=== PATIENT | female | born 1960 | race Caucasian/White ===

== ENCOUNTER 2016-10-01 21:14 | Inpatient (IN) | payer MEDICAID ==
[2016-10-01 21:47] VITALS: BP 154/91
[2016-10-01] MEDS ORDERED: Albuterol Nebulizer 2.5mg/3mL IH PRN (22:31)
[2016-10-01] MEDS ORDERED: Maalox 30 mL Cup PO PRN (22:31)
[2016-10-02] MEDS ORDERED: Thiamine 100 mg/mL 2mL Vial ONE (01:21)
[2016-10-02] MEDS ORDERED: Magnesium Sulfate 1 gm/2 mL 2mL Vial IV ONE (01:22)
[2016-10-02] MEDS ORDERED: Multivitamin Inj 10 mL Vial IV ONE (01:23)
[2016-10-02 04:30] LABS: AMPHETAMINE URINE NEGATIVE (NEGATIVE); BARBITURATES URINE NEGATIVE (NEGATIVE)
[2016-10-02 06:23] LABS: % BASOPHILS 0.5 % (0.0-2.0); % EOSINOPHILS 3.2 % (0.0-5.0); % NEUTROPHILS 72.3 % (40.0-80.0); HEMATOCRIT 35.8 % (35.0-45.0); HEMOGLOBIN 12.6 gm/dL (11.7-15.5); MEAN CELL VOLUME 99.2 fl (81-100); MEAN CORPUSCULAR HEMOGLOBIN 34.8 pg (27.0-31.0); MEAN CORPUSCULAR HGB CONC 35.1 pg (28.0-36.0); MEAN PLATELET VOLUME 7.9 fl; NEUTROPHILE ABSOLUTE 5.4 Th/cmm (1.8-8.0); PLATELET COUNT 222 Th/cmm (150-400); RED BLOOD COUNT 3.61 Mil/cmm (3.80-5.10); RED CELL DISTRIBUTION WIDTH 11.7 % (11.5-20.0); WHITE BLOOD COUNT 7.3 Th/cmm (4.8-10.8)
[2016-10-02 06:47] LABS: ALB/GLOB RATIO 1.1 (1.0-1.8); ALKALINE PHOSPHATASE 85 U/L (34-104); ANION GAP 10.2 (7.0-16.0); BILIRUBIN,TOTAL 0.7 mg/dL (0.3-1.0); BUN - UREA NITROGEN 6 mg/dL (7-25); CALCIUM SERUM 9.5 mg/dL (8.6-10.3); CARBON DIOXIDE 26.1 mEq/L (21.0-31.0); CHLORIDE 99 mEq/L (98-107); CREATININE - SERUM 0.5 mg/dL (0.6-1.2); GLUCOSE 97 mg/dL (70-105); MAGNESIUM 1.6 mg/dL (1.9-2.7); POTASSIUM SERUM 3.3 mEq/L (3.5-5.1); SGOT 22 U/L (13-39); SGPT/ALT 9 U/L (7-52); SODIUM SERUM 132 mEq/L (136-145)
[2016-10-02 07:01] LABS: BNP 23.4 pg/mL (5.0-100.0)
[2016-10-02 08:03] LABS: TSH 2.13 uIU/ml (0.34-5.60)
[2016-10-02] MEDS: Multivitamin Inj 10 ML, Thiamine HCL 100 MG, Magnesium Sulfate 2 GM, Folic Acid 1 MG in... IV SCH (08:50)
[2016-10-02] MEDS: Pantoprazole 40 mg EC Tab PO SCH ×2 (08:50→16:20)
[2016-10-02] MEDS ORDERED: Pneumococcal Vaccine 0.5 mL Vial IM ONE (10:00)
[2016-10-02] MEDS ORDERED: Influenza Vaccine 0.5 mL Syr IM ONE (10:00)
--- NOTE | 2016-10-02 10:27 | Diagnostic Imaging Report ---
CHEST X-RAY: AP view INDICATION: Shortness of breath COMPARISON: None FINDINGS: Mild chronic changes are seen. No focal consolidation or pleural effusions. Heart size is normal. Degenerative changes of the spine are noted. IMPRESSION: Mild chronic lung changes. No focal consolidation identified. No radiographic evidence of CHF.
[2016-10-02] MEDS: Ipratropium Neb 0.5 mg/2.5 mL UD IH PRN ×4 (11:28→23:10)
--- NOTE | 2016-10-02 12:33 | Internal Medicine Prog Note ---
Internal Medicine Subjective - Subjective Service Date: 10/02/16 ([id number] DICTATED HNP) Internal Medicine Objective - Results Result Diagrams: 10/02/16 05:54 10/02/16 05:54 Recent Labs: Laboratory Last Values WBC 7.3 Th/cmm (4.8-10.8) 10/02/16 05:54 RBC 3.61 Mil/cmm (3.80-5.10) L 10/02/16 05:54 Hgb 12.6 gm/dL (11.7-15.5) 10/02/16 05:54 Hct 35.8 % (35.0-45.0) 10/02/16 05:54 MCV 99.2 fl (81-100) 10/02/16 05:54 MCH 34.8 pg (27.0-31.0) H 10/02/16 05:54 MCHC Differential 35.1 pg (28.0-36.0) 10/02/16 05:54 RDW 11.7 % (11.5-20.0) 10/02/16 05:54 Plt Count 222 Th/cmm (150-400) 10/02/16 05:54 MPV 7.9 fl 10/02/16 05:54 Neutrophils % 72.3 % (40.0-80.0) 10/02/16 05:54 Lymphocytes % 13.0 % (20.0-50.0) L 10/02/16 05:54 Monocytes % 11.0 % (2.0-10.0) H 10/02/16 05:54 Eosinophils % 3.2 % (0.0-5.0) 10/02/16 05:54 Basophils % 0.5 % (0.0-2.0) 10/02/16 05:54 Sodium 132 mEq/L (136-145) L 10/02/16 05:54 Potassium 3.3 mEq/L (3.5-5.1) L 10/02/16 05:54 Chloride 99 mEq/L (98-107) 10/02/16 05:54 Carbon Dioxide 26.1 mEq/L (21.0-31.0) 10/02/16 05:54 Anion Gap 10.2 (7.0-16.0) 10/02/16 05:54 BUN 6 mg/dL (7-25) L 10/02/16 05:54 Creatinine 0.5 mg/dL (0.6-1.2) L 10/02/16 05:54 Est GFR ( Amer) > 60.0 ml/min 10/02/16 05:54 Est GFR (Non-Af Amer) > 60.0 ml/min 10/02/16 05:54 BUN/Creatinine Ratio 12.0 10/02/16 05:54 Glucose 97 mg/dL (70-105) 10/02/16 05:54 Calcium 9.5 mg/dL (8.6-10.3) 10/02/16 05:54 Magnesium 1.6 mg/dL (1.9-2.7) L 10/02/16 05:54 Total Bilirubin 0.7 mg/dL (0.3-1.0) 10/02/16 05:54 AST 22 U/L (13-39) 10/02/16 05:54 ALT 9 U/L (7-52) 10/02/16 05:54 Alkaline Phosphatase 85 U/L (34-104) 10/02/16 05:54 Ammonia 62 umol/L (16-53) H 10/02/16 05:54 B-Natriuretic Peptide 23.4 pg/mL (5.0-100.0) 10/02/16 05:54 Total Protein 7.0 gm/dL (6.0-8.3) 10/02/16 05:54 Albumin 3.7 gm/dL (3.7-5.3) 10/02/16 05:54 Globulin 3.3 gm/dL 10/02/16 05:54 Albumin/Globulin Ratio 1.1 (1.0-1.8) 10/02/16 05:54 TSH 2.13 uIU/ml (0.34-5.60) 10/02/16 05:54 Urine Opiates Screen NEGATIVE (NEGATIVE) 10/02/16 02:35 Ur Barbiturates Screen NEGATIVE (NEGATIVE) 10/02/16 02:35 Ur Phencyclidine Scrn NEGATIVE (NEGATIVE) 10/02/16 02:35 Amphetamines Screen NEGATIVE (NEGATIVE) 10/02/16 02:35 U Methamphetamines Scrn POSITIVE (NEGATIVE) H 10/02/16 02:35 U Benzodiazepines Scrn POSITIVE (NEGATIVE) H 10/02/16 02:35 U Cocaine Metab Screen POSITIVE (NEGATIVE) H 10/02/16 02:35 U Cannabinoids Screen POSITIVE (NEGATIVE) H 10/02/16 02:35 Ethyl Alcohol < 10 mg/dL (0-10) 10/02/16 05:54 - Physical Exam Vitals and I&O: Vital Signs Temp 98.2 F 10/02/16 12:00 Pulse 95 10/02/16 12:00 Resp 19 10/02/16 12:00 BP 128/70 10/02/16 12:00 Pulse Ox 100 10/02/16 12:00 Intake & Output 10/01/16 10/02/16 10/02/16 18:59 06:59 18:59 Intake Total 150 Balance 150 Weight (lbs) 116 lb Intake: Oral 150 Other: # Voids 3 # Bowel Movements 0 Active Medications: Current Medications Acetaminophen (Tylenol) 650 mg PO Q4HR PRN PRN Reason: Pain or Fever >101 Stop: 11/30/16 22:30 Al Hydrox/Mg Hydrox/Simethicone (Maalox) 30 ml PO Q6HR PRN PRN Reason: Constipation Stop: 11/30/16 22:30 Albuterol Sulfate (Albuterol 2.5mg/3ml Neb Ud) 2.5 mg IH Q2HR PRN PRN Reason: Shortness of Breath or Wheeze Stop: 11/30/16 22:30 Last Admin: 10/02/16 11:28 Dose: 2.5 mg Chlordiazepoxide (Librium) 25 mg PO TID [facility] PRN Reason: Protocol Stop: 12/01/16 08:59 Last Admin: 10/02/16 08:51 Dose: 25 mg Clonidine HCl (Catapres) 0.1 mg PO Q6HR PRN PRN Reason: SBP GREATER THAN 160 Stop: 11/30/16 22:30 Folic Acid (Folate) 1 mg PO DAILY [facility] Stop: 12/01/16 08:59 Last Admin: 10/02/16 08:51 Dose: 1 mg Guaifenesin (Robitussin) 200 mg PO Q4HR PRN PRN Reason: Cough or Congestion Stop: 11/30/16 22:30 Multivitamins/Minerals 10 ml/Thiamine HCl 100 mg/ Magnesium Sulfate 2 gm/ Folic Acid 1 mg / Sodium Chloride 1,015.2 mls @ 100 mls/hr IV Q24H [facility] Stop: 11/30/16 22:29 Last Admin: 10/02/16 08:50 Dose: 100 mls/hr Ipratropium [place] (Atrovent Neb 0.5mg/2.5ml) 0.5 mg IH Q2HR PRN PRN Reason: Shortness of Breath or Wheeze Stop: 11/30/16 22:30 Last Admin: 10/02/16 11:28 Dose: 0.5 mg Lorazepam (Ativan) 1 mg IV Q4HR PRN; Protocol PRN Reason: Seizure Stop: 11/30/16 22:30 Meclizine HCl (Antivert) 25 mg PO DAILY PRN PRN Reason: Nausea / Vomiting Stop: 11/30/16 22:30 Ondansetron HCl (Zofran) 4 mg IV Q8H PRN PRN Reason: Nausea / Vomiting Stop: 11/30/16 22:30 Pantoprazole Sodium (Protonix) 40 mg PO BID [facility] Stop: 12/01/16 08:59 Last Admin: 10/02/16 08:50 Dose: 40 mg Thiamine HCl (Vitamin B1) 100 mg PO DAILY [facility] Stop: 12/01/16 08:59 Last Admin: 10/02/16 08:50 Dose: 100 mg Zolpidem Tartrate (Ambien) 10 mg PO HS PRN PRN Reason: Insomnia Stop: 11/30/16 22:30 Internal Medicine Assmt/Plan - Assessment Assessment: asthma exacerbation alcohol withdrawal dehydration hyponatremia hypokalemia polysubstance abuse
[2016-10-02] MEDS ORDERED: Potassium Chloride 20 mEq ER Tab PO ONE (13:50)
[2016-10-02] MEDS: Albuterol Nebulizer 2.5mg/3mL HHN SCH ×3 (14:12→23:10)
[2016-10-02] MEDS: Levofloxacin 500mg/100mL 500 MG/100 ML BAG IV SCH (14:14)
--- NOTE | 2016-10-02 17:24 | History & Physical ---
CHIEF COMPLAINT: Chest pain and congestion. HISTORY OF PRESENT ILLNESS: This is a 56-year-old female who is a direct admission from [facility]. According to the patient, she has been having a 2-month history of productive cough associated with off and on fever. The patient states that when she brought herself to [facility], the patient started to develop chest pain. She states that it was nonradiating, but it was more of chest pressure. Denies any shortness of breath. She does state that she has productive cough associated with dark green phlegm. The patient denied any chills, any night sweats or any recent travel outside of the . PAST MEDICAL HISTORY: Asthma and alcohol abuse. SOCIAL HISTORY: The patient states that she smokes cigarettes half a pack per day. She denied any illicit drug usage, but her toxicology is positive for methamphetamine, benzodiazepine, cocaine and cannabis. She states that she drinks alcohol occasionally. The patient is homeless. The patient states that she just lost her home 2 months ago as well. She lives in the streets. FAMILY HISTORY: Noncontributory. ALLERGIES: PENICILLIN. REVIEW OF SYSTEMS: GENERAL: Denies any fever, denies chills. CARDIOVASCULAR: Admits to chest pain. RESPIRATORY: Denies any shortness of breath, but complains of cough, denies any wheezes. GASTROINTESTINAL: Denies any nausea, vomiting or abdominal pain. GENITOURINARY: Denies any dysuria. All other systems are reviewed by me and are negative. LABORATORY DATA: WBC 7.3, H and H 12.6 and 35.8. Sodium 132, potassium 3.3. BUN is 6, creatinine 0.5. Ammonia 62. The patient had a chest x-ray done and the impression is mild chronic lung changes, no focal consolidation, no radiographic evidence of COPD. ASSESSMENT: 1. Alcohol withdrawal, dehydration. 2. Asthma exacerbation. 3. Hypokalemia. 4. Hyponatremia. 5. Polysubstance abuse. PLAN: The patient will be admitted to the telemetry unit. We will check the patient's troponin level. We will get roads superintendent on the case as well as psychiatrist. We will give albuterol and Atrovent. The patient will be kept on a banana bag and also on Librium. Put the patient on IV antibiotics of Levaquin. We will continue to monitor the patient. [facility]# [id number]
[2016-10-02] MEDS ORDERED: D5-0.45NS 1,000 ML IV SCH (18:00)
--- NOTE | 2016-10-03 00:17 | Admit Criteria Form ---
Admit Criteria Forms - Admit Criteria Diagnosis: ASTHMA Clinical Indications for Admission to Inpatient Care (Place 'X' for any and all applicable criteria): Admission is indicated for ANY ONE of the following (1)(2)(3)(4)(5): [ ]I. Absent or markedly diminished breath sounds (silent chest) [ ]II. Oxygen saturation < 92% [ ]III. PaCO2 = / > 42 mm Hg (5.6 kPa) [ ]IV. Peak expiratory flow rate < 40% of predicted or personal best after treatment. [ ]V. Peak expiratory flow rate < 33% of predicted or personal before after treatment [ ]. Change in mental status [ ]VII. Ventilatory support required [ ]VIII. PaO2 < 60 mm Hg (8.0 kPa) [ ]IX. Cyanosis [ ]X. Cardiac dysrhythmia (e.g., bradycardia) [ ]XI. Hemodynamic instability [ ]XII. Radiographic evidence of complication requiring inpatient treatment (e.g., pneumonia, pneumothorax) [ x]XIII. Inpatient admission required rather than observation care (also use Asthma: Observation Care guideline as appropriate) because of ANY ONE of the following: [ ]a) Respiratory finding that is severe or persistent (eg, dyspnea, tachypnea, accessory muscle use) [ ]b) Airflow measurements less than 60% of predicted or personal best that persist (e.g., over 24 hours) or worsen despite treatments [ ]c) Supplemental oxygen or respiratory treatments for over 24 hours that are performable only in acute inpatient setting [x ]d) Other condition, treatment or monitoring requiring inpatient admission. Extended stay beyond goal length of stay may be needed for (26)(27)(28): [ ]a) Severe respiratory failure (23) (29) (30) [ ]b) Secondary causes and complications (25) [ ]c) Status asthmaticus [ ]d) Chronic obstructive asthma [ ]e) Older patients (29) [ ]f) Slow resolution [ ]g) Clinically significant exacerbation of comorbidities (eg, he. heart failure, atrial fibrillation) The original [facility] content created by [facility] [employer] has been revised. The portions of the content which have been revised are identified through the use of italic text or in bold, and [facility] has neither reviewed nor approved the modified material. All other unmodified content is copyright [facility] Please see references footnoted in the original [facility] edition 2016 Admit Criteria Met?: Yes
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
[2016-10-03] MEDS: Albuterol Nebulizer 2.5mg/3mL HHN SCH ×6 (02:50→22:00)
[2016-10-03 06:05] LABS: HEMATOCRIT 36.3 % (35.0-45.0); HEMOGLOBIN 12.2 gm/dL (11.7-15.5); MEAN CELL VOLUME 99.8 fl (81-100); MEAN CORPUSCULAR HEMOGLOBIN 33.7 pg (27.0-31.0); MEAN CORPUSCULAR HGB CONC 33.7 pg (28.0-36.0); MEAN PLATELET VOLUME 7.9 fl; PLATELET COUNT 214 Th/cmm (150-400); RED BLOOD COUNT 3.63 Mil/cmm (3.80-5.10); RED CELL DISTRIBUTION WIDTH 11.6 % (11.5-20.0); WHITE BLOOD COUNT 6.6 Th/cmm (4.8-10.8)
[2016-10-03 06:31] LABS: ANION GAP 9.3 (7.0-16.0); BUN - UREA NITROGEN 4 mg/dL (7-25); CALCIUM SERUM 9.3 mg/dL (8.6-10.3); CARBON DIOXIDE 26.2 mEq/L (21.0-31.0); CHLORIDE 99 mEq/L (98-107); CREATININE - SERUM 0.5 mg/dL (0.6-1.2); GLUCOSE 102 mg/dL (70-105); MAGNESIUM 1.6 mg/dL (1.9-2.7); POTASSIUM SERUM 3.5 mEq/L (3.5-5.1); SODIUM SERUM 131 mEq/L (136-145)
[2016-10-03] MEDS: Ipratropium Neb 0.5 mg/2.5 mL UD IH PRN ×3 (06:51→14:02)
[2016-10-03] MEDS: Multivitamin Inj 10 ML, Thiamine HCL 100 MG, Magnesium Sulfate 2 GM, Folic Acid 1 MG in... IV SCH ×2 (08:07→23:45)
[2016-10-03] MEDS: Aspirin 81mg Chewable Tab PO SCH (08:07)
[2016-10-03] MEDS: Pantoprazole 40 mg EC Tab PO SCH ×2 (08:07→16:01)
[2016-10-03 08:25] LABS: BAND NEUTROPHILE 4 % (0-10); NEUTROPHILS 66 % (40-80); PLATELET ESTIMATE ADEQUATE (NORMAL); PLATELET MORPHOLOGY GIANT PLATELETS SEEN (NORMAL); TOTAL CELLS COUNTED 100
[2016-10-03] MEDS ORDERED: Multivitamin Inj 10 ML, Thiamine HCL 100 MG, Magnesium Sulfate 2 GM, Folic Acid 1 MG in... IV SCH (09:00)
[2016-10-03 13:13] LABS: FOLIC ACID 15.4 ng/mL (>3.0)
[2016-10-03] MEDS: Levofloxacin 500mg/100mL 500 MG/100 ML BAG IV SCH (13:19)
--- NOTE | 2016-10-03 14:31 | Internal Medicine Prog Note ---
Internal Medicine Subjective - Subjective Service Date: 10/03/16 Patient is:: awake Per staff patient is:: no adverse event Internal Medicine Objective - Results Result Diagrams: 10/03/16 05:39 10/03/16 05:39 Recent Labs: Laboratory Last Values WBC 6.6 Th/cmm (4.8-10.8) 10/03/16 05:39 RBC 3.63 Mil/cmm (3.80-5.10) L 10/03/16 05:39 Hgb 12.2 gm/dL (11.7-15.5) 10/03/16 05:39 Hct 36.3 % (35.0-45.0) 10/03/16 05:39 MCV 99.8 fl (81-100) 10/03/16 05:39 MCH 33.7 pg (27.0-31.0) H 10/03/16 05:39 MCHC Differential 33.7 pg (28.0-36.0) 10/03/16 05:39 RDW 11.6 % (11.5-20.0) 10/03/16 05:39 Plt Count 214 Th/cmm (150-400) 10/03/16 05:39 MPV 7.9 fl 10/03/16 05:39 Neutrophils % 72.3 % (40.0-80.0) 10/02/16 05:54 Band Neutrophils % 4 % (0-10) 10/03/16 05:39 Lymphocytes % 13.0 % (20.0-50.0) L 10/02/16 05:54 Monocytes % 11.0 % (2.0-10.0) H 10/02/16 05:54 Eosinophils % 3.2 % (0.0-5.0) 10/02/16 05:54 Basophils % 0.5 % (0.0-2.0) 10/02/16 05:54 Neutrophils (Manual) 66 % (40-80) 10/03/16 05:39 Lymphocytes 16 % (20-50) L 10/03/16 05:39 Monocytes 14 % (2-10) H 10/03/16 05:39 Eosinophils Not Reportable 10/03/16 05:39 Platelet Estimate ADEQUATE (NORMAL) 10/03/16 05:39 Platelet Morphology GIANT PLATELETS SEEN (NORMAL) 10/03/16 05:39 RBC Morph Micro Appear NORMAL (NORMAL) 10/03/16 05:39 Sodium 131 mEq/L (136-145) L 10/03/16 05:39 Potassium 3.5 mEq/L (3.5-5.1) 10/03/16 05:39 Chloride 99 mEq/L (98-107) 10/03/16 05:39 Carbon Dioxide 26.2 mEq/L (21.0-31.0) 10/03/16 05:39 Anion Gap 9.3 (7.0-16.0) 10/03/16 05:39 BUN 4 mg/dL (7-25) L 10/03/16 05:39 Creatinine 0.5 mg/dL (0.6-1.2) L 10/03/16 05:39 Est GFR ( Amer) > 60.0 ml/min 10/03/16 05:39 Est GFR (Non-Af Amer) > 60.0 ml/min 10/03/16 05:39 BUN/Creatinine Ratio 8.0 10/03/16 05:39 Glucose 102 mg/dL (70-105) 10/03/16 05:39 Calcium 9.3 mg/dL (8.6-10.3) 10/03/16 05:39 Magnesium 1.6 mg/dL (1.9-2.7) L 10/03/16 05:39 Total Bilirubin 0.7 mg/dL (0.3-1.0) 10/02/16 05:54 AST 22 U/L (13-39) 10/02/16 05:54 ALT 9 U/L (7-52) 10/02/16 05:54 Alkaline Phosphatase 85 U/L (34-104) 10/02/16 05:54 Ammonia 62 umol/L (16-53) H 10/02/16 05:54 Troponin I < 0.01 ng/mL (0.01-0.05) L 10/02/16 21:29 B-Natriuretic Peptide 23.4 pg/mL (5.0-100.0) 10/02/16 05:54 Total Protein 7.0 gm/dL (6.0-8.3) 10/02/16 05:54 Albumin 3.7 gm/dL (3.7-5.3) 10/02/16 05:54 Globulin 3.3 gm/dL 10/02/16 05:54 Albumin/Globulin Ratio 1.1 (1.0-1.8) 10/02/16 05:54 Vitamin B12 741 pg/mL (211-946) 10/02/16 05:54 Folic Acid 15.4 ng/mL (>3.0) 10/02/16 05:54 TSH 2.13 uIU/ml (0.34-5.60) 10/02/16 05:54 Urine Opiates Screen NEGATIVE (NEGATIVE) 10/02/16 02:35 Ur Barbiturates Screen NEGATIVE (NEGATIVE) 10/02/16 02:35 Ur Phencyclidine Scrn NEGATIVE (NEGATIVE) 10/02/16 02:35 Amphetamines Screen NEGATIVE (NEGATIVE) 10/02/16 02:35 U Methamphetamines Scrn POSITIVE (NEGATIVE) H 10/02/16 02:35 U Benzodiazepines Scrn POSITIVE (NEGATIVE) H 10/02/16 02:35 U Cocaine Metab Screen POSITIVE (NEGATIVE) H 10/02/16 02:35 U Cannabinoids Screen POSITIVE (NEGATIVE) H 10/02/16 02:35 Ethyl Alcohol < 10 mg/dL (0-10) 10/02/16 05:54 - Physical Exam Vitals and I&O: Vital Signs Temp 99.0 F 10/03/16 12:00 Pulse 108 10/03/16 14:03 Resp 20 10/03/16 14:03 BP 142/91 10/03/16 12:00 Pulse Ox 95 10/03/16 14:03 Intake & Output 10/02/16 10/03/16 10/03/16 18:59 06:59 18:59 Intake Total 550 1315.2 1000 Balance 550 1315.2 1000 Intake: Intake, IV Amount 100 1015.2 1000 D5-0.45NS 1,000 ml @ 70 1000 mls/hr IV .[id number] [facility] Rx #:[id number] Levofloxacin 500mg/100mL 100 500 mg In 100 ml @ 100 mls/hr IV Q24HR [facility] Rx#: [id number] Multivitamin Inj 10 ml 1015.2 Thiamine HCL 100 mg Magnesium Sulfate 2 gm Folic Acid 1 mg In Sodium Chloride 0.9% 1,000 ml @ 100 mls/hr IV Q24H [facility] Rx#:[id number] Oral 450 300 Other: # Voids 3 3 Active Medications: Current Medications Acetaminophen (Tylenol) 650 mg PO Q4HR PRN PRN Reason: Pain or Fever >101 Stop: 11/30/16 22:30 Al Hydrox/Mg Hydrox/Simethicone (Maalox) 30 ml PO Q6HR PRN PRN Reason: Constipation Stop: 11/30/16 22:30 Albuterol Sulfate (Albuterol 2.5mg/3ml Neb Ud) 2.5 mg HHN Q4HRT [facility] Stop: 12/01/16 14:59 Last Admin: 10/03/16 14:02 Dose: 2.5 mg Aspirin (Aspirin Chewable) 81 mg PO DAILY [facility] Stop: 12/02/16 08:59 Last Admin: 10/03/16 08:07 Dose: 81 mg Chlordiazepoxide (Librium) 25 mg PO TID [facility]EL PRN Reason: Protocol Stop: 12/01/16 08:59 Last Admin: 10/03/16 13:19 Dose: 25 mg Clonidine HCl (Catapres) 0.1 mg PO Q6HR PRN PRN Reason: SBP GREATER THAN 160 Stop: 12/01/16 12:35 Folic Acid (Folate) 1 mg PO DAILY [facility] Stop: 12/01/16 08:59 Last Admin: 10/03/16 08:07 Dose: 1 mg Guaifenesin (Robitussin) 200 mg PO Q4HR PRN PRN Reason: Cough or Congestion Stop: 11/30/16 22:30 Multivitamins/Minerals 10 ml/Thiamine HCl 100 mg/ Magnesium Sulfate 2 gm/ Folic Acid 1 mg / Sodium Chloride 1,015.2 mls @ 100 mls/hr IV Q24H [facility] Stop: 11/30/16 22:29 Last Admin: 10/03/16 08:07 Dose: 100 mls/hr Levofloxacin (Levaquin Pb) 500 mg in 100 mls @ 100 mls/hr IV Q24HR [facility] Stop: 12/01/16 12:59 Last Admin: 10/03/16 13:19 Dose: 100 mls/hr Dextrose/Sodium Chloride (D5-0.45ns) 1,000 mls @ 70 mls/hr IV .[id number] [facility] Stop: 12/01/16 17:59 Last Infusion: 10/03/16 10:03 Dose: Infused Ipratropium [place] (Atrovent Neb 0.5mg/2.5ml) 0.5 mg IH Q2HR PRN PRN Reason: Shortness of Breath or Wheeze Stop: 11/30/16 22:30 Last Admin: 10/03/16 14:02 Dose: 0.5 mg Lorazepam (Ativan) 1 mg IV Q4HR PRN; Protocol PRN Reason: Seizure Stop: 11/30/16 22:30 Last Admin: 10/03/16 01:59 Dose: 1 mg Lorazepam (Ativan) 1 mg PO Q6HR PRN; Protocol PRN Reason: Anxiety Stop: 12/01/16 19:14 Last Admin: 10/03/16 09:52 Dose: 1 mg Meclizine HCl (Antivert) 25 mg PO DAILY PRN PRN Reason: Nausea / Vomiting Stop: 11/30/16 22:30 Mirtazapine (Remeron) 15 mg PO HS [facility] PRN Reason: Protocol Stop: 12/01/16 20:59 Last Admin: 10/02/16 20:21 Dose: 15 mg Ondansetron HCl (Zofran) 4 mg IV Q8H PRN PRN Reason: Nausea / Vomiting Stop: 11/30/16 22:30 Pantoprazole Sodium (Protonix) 40 mg PO BID [facility] Stop: 12/01/16 08:59 Last Admin: 10/03/16 08:07 Dose: 40 mg Thiamine HCl (Vitamin B1) 100 mg PO DAILY [facility] Stop: 12/01/16 08:59 Last Admin: 10/03/16 08:07 Dose: 100 mg Zolpidem Tartrate (Ambien) 10 mg PO HS PRN PRN Reason: Insomnia Stop: 11/30/16 22:30 Last Admin: 10/02/16 20:22 Dose: 10 mg General: alert HEENT: NC/AT, PERRLA Neck: Supple Lungs: CTAB Cardiovascular: RRR, Normal S1, Normal S2, without murmur Abdomen: soft non-tender, non-distended, positive bowel sound Neurological: no change Internal Medicine Assmt/Plan - Assessment Assessment: asthma exacerbation alcohol withdrawal dehydration hyponatremia hypokalemia polysubstance abuse - Plan Plan: continue banana [facility] social work therapist to give information regarding shelters cbc/bmp in am fall precautions
[2016-10-03] MEDS: guaiFENesin 200 MG/10 ML UDC PO PRN (20:49)
[2016-10-03 22:10] LABS: URINE BILIRUBIN NEGATIVE (NEGATIVE); URINE BLOOD NEGATIVE (NEGATIVE); URINE COLOR YELLOW; URINE GLUCOSE (UA) NEGATIVE (NEGATIVE); URINE KETONE NEGATIVE (NEGATIVE); URINE PROTEIN NEGATIVE (NEGATIVE); URINE UROBILINOGEN 0.2 E.U./dL (0.2 - 1.0)
[2016-10-03 22:11] LABS: URINE BACTERIA FEW /hpf (NONE SEEN); URINE EPITHELIAL CELLS FEW /lpf (FEW); URINE RBC 0-2 /hpf (0-5); URINE WBC 0-2 /hpf (0-5)
[2016-10-04] MEDS: guaiFENesin 200 MG/10 ML UDC PO PRN ×3 (03:31→14:51)
[2016-10-04] MEDS: Albuterol Nebulizer 2.5mg/3mL HHN SCH ×3 (03:35→12:28)
[2016-10-04 06:19] LABS: HEMATOCRIT 36.7 % (35.0-45.0); HEMOGLOBIN 12.8 gm/dL (11.7-15.5); MEAN CELL VOLUME 99.5 fl (81-100); MEAN CORPUSCULAR HEMOGLOBIN 34.8 pg (27.0-31.0); MEAN CORPUSCULAR HGB CONC 34.9 pg (28.0-36.0); MEAN PLATELET VOLUME 7.8 fl; PLATELET COUNT 221 Th/cmm (150-400); RED BLOOD COUNT 3.69 Mil/cmm (3.80-5.10); RED CELL DISTRIBUTION WIDTH 11.8 % (11.5-20.0); WHITE BLOOD COUNT 6.2 Th/cmm (4.8-10.8)
[2016-10-04 06:34] LABS: ANION GAP 11.6 (7.0-16.0); BUN - UREA NITROGEN 5 mg/dL (7-25); CARBON DIOXIDE 26.9 mEq/L (21.0-31.0); CHLORIDE 99 mEq/L (98-107); CREATININE - SERUM 0.5 mg/dL (0.6-1.2); GLUCOSE 114 mg/dL (70-105); POTASSIUM SERUM 3.5 mEq/L (3.5-5.1); SODIUM SERUM 134 mEq/L (136-145)
[2016-10-04] MEDS: Ipratropium Neb 0.5 mg/2.5 mL UD IH PRN (07:38)
[2016-10-04 08:15] LABS: BAND NEUTROPHILE 4 % (0-10); EOSINOPHIL 0 % (0-5); NEUTROPHILS 65 % (40-80); PLATELET ESTIMATE ADEQUATE (NORMAL); PLATELET MORPHOLOGY NORMAL (NORMAL); TOTAL CELLS COUNTED 100
[2016-10-04] MEDS: Pantoprazole 40 mg EC Tab PO SCH (08:55)
[2016-10-04] MEDS: Aspirin 81mg Chewable Tab PO SCH (08:55)
--- NOTE | 2016-10-04 12:24 | Internal Medicine Prog Note ---
Internal Medicine Subjective - Subjective Service Date: 10/04/16 (DC SUMMARY [id number]) Internal Medicine Objective - Results Result Diagrams: 10/04/16 05:46 10/04/16 05:46 Recent Labs: Laboratory Last Values WBC 6.2 Th/cmm (4.8-10.8) 10/04/16 05:46 RBC 3.69 Mil/cmm (3.80-5.10) L 10/04/16 05:46 Hgb 12.8 gm/dL (11.7-15.5) 10/04/16 05:46 Hct 36.7 % (35.0-45.0) 10/04/16 05:46 MCV 99.5 fl (81-100) 10/04/16 05:46 MCH 34.8 pg (27.0-31.0) H 10/04/16 05:46 MCHC Differential 34.9 pg (28.0-36.0) 10/04/16 05:46 RDW 11.8 % (11.5-20.0) 10/04/16 05:46 Plt Count 221 Th/cmm (150-400) 10/04/16 05:46 MPV 7.8 fl 10/04/16 05:46 Neutrophils % 72.3 % (40.0-80.0) 10/02/16 05:54 Band Neutrophils % 4 % (0-10) 10/04/16 05:46 Lymphocytes % 13.0 % (20.0-50.0) L 10/02/16 05:54 Monocytes % 11.0 % (2.0-10.0) H 10/02/16 05:54 Eosinophils % 3.2 % (0.0-5.0) 10/02/16 05:54 Basophils % 0.5 % (0.0-2.0) 10/02/16 05:54 Neutrophils (Manual) 65 % (40-80) 10/04/16 05:46 Lymphocytes 11 % (20-50) L 10/04/16 05:46 Monocytes 20 % (2-10) H 10/04/16 05:46 Eosinophils 0 % (0-5) 10/04/16 05:46 Platelet Estimate ADEQUATE (NORMAL) 10/04/16 05:46 Platelet Morphology NORMAL (NORMAL) 10/04/16 05:46 RBC Morph Micro Appear NORMAL (NORMAL) 10/04/16 05:46 Sodium 134 mEq/L (136-145) L 10/04/16 05:46 Potassium 3.5 mEq/L (3.5-5.1) 10/04/16 05:46 Chloride 99 mEq/L (98-107) 10/04/16 05:46 Carbon Dioxide 26.9 mEq/L (21.0-31.0) 10/04/16 05:46 Anion Gap 11.6 (7.0-16.0) 10/04/16 05:46 BUN 5 mg/dL (7-25) L 10/04/16 05:46 Creatinine 0.5 mg/dL (0.6-1.2) L 10/04/16 05:46 Est GFR ( Amer) > 60.0 ml/min 10/04/16 05:46 Est GFR (Non-Af Amer) > 60.0 ml/min 10/04/16 05:46 BUN/Creatinine Ratio 10.0 10/04/16 05:46 Glucose 114 mg/dL (70-105) H 10/04/16 05:46 Calcium 10.0 mg/dL (8.6-10.3) 10/04/16 05:46 Magnesium 1.6 mg/dL (1.9-2.7) L 10/03/16 05:39 Total Bilirubin 0.7 mg/dL (0.3-1.0) 10/02/16 05:54 AST 22 U/L (13-39) 10/02/16 05:54 ALT 9 U/L (7-52) 10/02/16 05:54 Alkaline Phosphatase 85 U/L (34-104) 10/02/16 05:54 Ammonia 62 umol/L (16-53) H 10/02/16 05:54 Troponin I < 0.01 ng/mL (0.01-0.05) L 10/02/16 21:29 B-Natriuretic Peptide 23.4 pg/mL (5.0-100.0) 10/02/16 05:54 Total Protein 7.0 gm/dL (6.0-8.3) 10/02/16 05:54 Albumin 3.7 gm/dL (3.7-5.3) 10/02/16 05:54 Globulin 3.3 gm/dL 10/02/16 05:54 Albumin/Globulin Ratio 1.1 (1.0-1.8) 10/02/16 05:54 Vitamin B12 741 pg/mL (211-946) 10/02/16 05:54 Folic Acid 15.4 ng/mL (>3.0) 10/02/16 05:54 TSH 2.13 uIU/ml (0.34-5.60) 10/02/16 05:54 Urine Source CLEAN C 10/03/16 21:52 Urine Color YELLOW 10/03/16 21:52 Urine Clarity CLEAR (CLEAR) 10/03/16 21:52 Urine pH 7.0 10/03/16 21:52 Ur Specific [place] 1.015 (1.005-1.030) 10/03/16 21:52 Urine Protein NEGATIVE mg/dL (NEGATIVE) 10/03/16 21:52 Urine Glucose (UA) NEGATIVE mg/dL (NEGATIVE) 10/03/16 21:52 Urine Ketones NEGATIVE mg/dL (NEGATIVE) 10/03/16 21:52 Urine Blood NEGATIVE (NEGATIVE) 10/03/16 21:52 Urine Nitrate NEGATIVE (NEGATIVE) 10/03/16 21:52 Urine Bilirubin NEGATIVE (NEGATIVE) 10/03/16 21:52 Urine Urobilinogen 0.2 E.U./dL (0.2 - 1.0) 10/03/16 21:52 Ur Leukocyte Esterase NEGATIVE (NEGATIVE) 10/03/16 21:52 Urine RBC 0-2 /hpf (0-5) 10/03/16 21:52 Urine WBC 0-2 /hpf (0-5) 10/03/16 21:52 Ur Epithelial Cells FEW /lpf (FEW) 10/03/16 21:52 Urine Bacteria FEW /hpf (NONE SEEN) 10/03/16 21:52 Urine Opiates Screen NEGATIVE (NEGATIVE) 10/02/16 02:35 Ur Barbiturates Screen NEGATIVE (NEGATIVE) 10/02/16 02:35 Ur Phencyclidine Scrn NEGATIVE (NEGATIVE) 10/02/16 02:35 Amphetamines Screen NEGATIVE (NEGATIVE) 10/02/16 02:35 U Methamphetamines Scrn POSITIVE (NEGATIVE) H 10/02/16 02:35 U Benzodiazepines Scrn POSITIVE (NEGATIVE) H 10/02/16 02:35 U Cocaine Metab Screen POSITIVE (NEGATIVE) H 10/02/16 02:35 U Cannabinoids Screen POSITIVE (NEGATIVE) H 10/02/16 02:35 Ethyl Alcohol < 10 mg/dL (0-10) 10/02/16 05:54 - Physical Exam Vitals and I&O: Vital Signs Temp 98.8 F 10/04/16 08:00 Pulse 111 10/04/16 08:00 Resp 18 10/04/16 08:00 BP 140/81 10/04/16 08:00 Pulse Ox 92 10/04/16 08:00 Intake & Output 10/03/16 10/04/16 10/04/16 18:59 06:59 18:59 Intake Total 1700 1515.2 Balance 1700 1515.2 Intake: Intake, IV Amount 1100 1015.2 D5-0.45NS 1,000 ml @ 70 1000 mls/hr IV .[id number] COUNT INCLUDES THE [facility] Rx #:[id number] Levofloxacin 500mg/100mL 100 500 mg In 100 ml @ 100 mls/hr IV Q24HR COUNT INCLUDES THE [facility] Rx#: [id number] Multivitamin Inj 10 ml 1015.2 Thiamine HCL 100 mg Magnesium Sulfate 2 gm Folic Acid 1 mg In Sodium Chloride 0.9% 1,000 ml @ 100 mls/hr IV Q24H COUNT INCLUDES THE [facility] Rx#:[id number] Oral 600 500 Other: # Voids 4 4 # Bowel Movements 0 Active Medications: Current Medications Acetaminophen (Tylenol) 650 mg PO Q4HR PRN PRN Reason: Pain or Fever >101 Stop: 11/30/16 22:30 Last Admin: 10/04/16 03:31 Dose: 650 mg Al Hydrox/Mg Hydrox/Simethicone (Maalox) 30 ml PO Q6HR PRN PRN Reason: Constipation Stop: 11/30/16 22:30 Albuterol Sulfate (Albuterol 2.5mg/3ml Neb Ud) 2.5 mg HHN Q4HRT COUNT INCLUDES THE [facility] Stop: 12/01/16 14:59 Last Admin: 10/04/16 07:38 Dose: 2.5 mg Aspirin (Aspirin Chewable) 81 mg PO DAILY COUNT INCLUDES THE [facility] Stop: 12/02/16 08:59 Last Admin: 10/04/16 08:55 Dose: 81 mg Buspirone HCl (Buspar) 10 mg PO BID MARIBEL PRN Reason: Protocol Stop: 12/03/16 16:59 Clonidine HCl (Catapres) 0.1 mg PO Q6HR PRN PRN Reason: SBP GREATER THAN 160 Stop: 12/01/16 12:35 Folic Acid (Folate) 1 mg PO DAILY MARIBEL Stop: 12/01/16 08:59 Last Admin: 10/04/16 08:55 Dose: 1 mg Guaifenesin (Robitussin) 200 mg PO Q4HR PRN PRN Reason: Cough or Congestion Stop: 11/30/16 22:30 Last Admin: 10/04/16 07:30 Dose: 200 mg Multivitamins/Minerals 10 ml/Thiamine HCl 100 mg/ Magnesium Sulfate 2 gm/ Folic Acid 1 mg / Sodium Chloride 1,015.2 mls @ 100 mls/hr IV Q24H COUNT INCLUDES THE [facility] Stop: 11/30/16 22:29 Last Admin: 10/03/16 23:45 Dose: Not Given Levofloxacin (Levaquin Pb) 500 mg in 100 mls @ 100 mls/hr IV Q24HR COUNT INCLUDES THE [facility] Stop: 12/01/16 12:59 Last Infusion: 10/03/16 14:20 Dose: Infused Dextrose/Sodium Chloride (D5-0.45ns) 1,000 mls @ 70 mls/hr IV .[id number] COUNT INCLUDES THE [facility] Stop: 12/01/16 17:59 Last Infusion: 10/03/16 10:03 Dose: Infused Ipratropium [place] (Atrovent Neb 0.5mg/2.5ml) 0.5 mg IH Q2HR PRN PRN Reason: Shortness of Breath or Wheeze Stop: 11/30/16 22:30 Last Admin: 10/04/16 07:38 Dose: 0.5 mg Lorazepam (Ativan) 1 mg IV Q4HR PRN; Protocol PRN Reason: Seizure Stop: 11/30/16 22:30 Last Admin: 10/03/16 01:59 Dose: 1 mg Lorazepam (Ativan) 1 mg PO Q6HR PRN; Protocol PRN Reason: Anxiety Stop: 12/01/16 19:14 Last Admin: 10/04/16 06:24 Dose: 1 mg Meclizine HCl (Antivert) 25 mg PO DAILY PRN PRN Reason: Nausea / Vomiting Stop: 11/30/16 22:30 Mirtazapine (Remeron) 15 mg PO HS MARIBEL PRN Reason: Protocol Stop: 12/01/16 20:59 Last Admin: 10/03/16 20:50 Dose: 15 mg Ondansetron HCl (Zofran) 4 mg IV Q8H PRN PRN Reason: Nausea / Vomiting Stop: 11/30/16 22:30 Pantoprazole Sodium (Protonix) 40 mg PO BID MARIBEL Stop: 12/01/16 08:59 Last Admin: 10/04/16 08:55 Dose: 40 mg Quetiapine Fumarate (Seroquel) 25 mg PO HS MARIBEL PRN Reason: Protocol Stop: 12/03/16 20:59 Thiamine HCl (Vitamin B1) 100 mg PO DAILY MARIBEL Stop: 12/01/16 08:59 Last Admin: 10/04/16 08:55 Dose: 100 mg Zolpidem Tartrate (Ambien) 10 mg PO HS PRN PRN Reason: Insomnia Stop: 11/30/16 22:30 Last Admin: 10/03/16 20:50 Dose: 10 mg Internal Medicine Assmt/Plan - Assessment Assessment: asthma exacerbation alcohol withdrawal dehydration hyponatremia hypokalemia polysubstance abuse
[2016-10-04] MEDS: Levofloxacin 500mg/100mL 500 MG/100 ML BAG IV SCH (12:31)
[2016-10-04] MEDS ORDERED: Pantoprazole 40 mg EC Tab PO SCH (16:30)
--- NOTE | 2016-10-04 21:39 | Cardiology ---
Patient of Dr. Carter. M-MODE ECHOCARDIOGRAM: Mitral Valve: Anterior leaflet of the mitral valve shows normal excursion, EF velocity. Posterior leaflet of the mitral valve shows normal excursion. Left ventricular posterior wall shows increased thickness, normal excursion. Interventricular septum shows increased thickness, normal excursion, hypertrophy of the left ventricle, ejection fraction 65%. Left atrium normal. Aortic root shows normal dimension, normal excursion of aortic leaflets. CONCLUSION: Mild hypertrophy of the left ventricle, ejection fraction ____%. 2D ECHO: Long axis view showed normal-sized left ventricle with hypertrophy of the left ventricle. Left atrium normal. Aortic root shows normal dimension, normal excursion of aortic leaflets. Short axis view of mitral valve normal. Short axis view of aortic valve normal. Apical four-chamber view showed normal-sized left ventricle, left atrium, right ventricle, right atrium, tricuspid valve and mitral valve. Ejection fraction 65%. CONCLUSION: Hypertrophy of the left ventricle, ejection fraction 65%. Doppler study shows prominent A wave consistent with poor compliance of left ventricle, trace tricuspid regurgitation. JOB# [id number]
--- NOTE | 2016-10-04 21:50 | Discharge Summary ---
FINAL DIAGNOSES: 1. Asthma exacerbation with resolved alcohol withdrawal. 2. Dehydration, resolved. 3. Hyponatremia, resolved. 4. Hyperkalemia, resolved. 5. Polysubstance abuse. HISTORY OF PRESENT ILLNESS: This is a 56-year-old female who is a direct admission from [facility]. According to the patient, she has been having a 2-month history of productive cough associated with off and on fever. The patient states she brought herself to [facility]. The patient started to develop chest pain. She stated it was nonradiating, but there was more chest pressure. She denies any shortness of breath. PHYSICAL EXAMINATION: GENERAL: The patient is well developed, well nourished, in no acute distress. VITAL SIGNS: Stable. HEENT: Normocephalic and atraumatic. NECK: Supple. No mass. LUNGS: Clear bilaterally upon auscultation. HEART: Regular rate and rhythm. No murmurs or gallops. SKIN: Intact, warm to touch. ABDOMEN: Soft, nontender, and nondistended. Positive bowel sounds in all 4 quadrants. HOSPITAL COURSE: During the hospital stay, the patient was admitted to the telemetry unit. The patient had a consultation with Dr. Edin Billingsley. The patient was kept on IV banana bag and also IV Levaquin. Dr. Garcia as well was following the patient. The patient was kept on Librium for alcohol withdrawal. Dr. Jesus's plan of care was further chest pains secondary to pleurisy, mostly noncardiac. The patient later then stabilized and was stable for discharge. CONDITION UPON DISCHARGE: Fair. DISPOSITION: The patient is going to homeless custodial. JOB# [id number]
== END 2016-10-04 15:00 | DRG 774 ==
LOC: TELE 21:14
PROVIDERS: ADMIT Internal Medicine; ATTEND Internal Medicine
DX: F10.239 Alcohol dependence with withdrawal, unspecified (principal); F14.10 Cocaine abuse, uncomplicated; E87.1 Hypo-osmolality and hyponatremia; J45.901 Unspecified asthma with (acute) exacerbation; F33.1 Major depressive disorder, recurrent, moderate; E87.6 Hypokalemia; F17.210 Nicotine dependence, cigarettes, uncomplicated; R09.1 Pleurisy; R01.1 Cardiac murmur, unspecified; F15.10 Other stimulant abuse, uncomplicated; E86.0 Dehydration; F41.9 Anxiety disorder, unspecified; Z88.0 Allergy status to penicillin
CPT/HCPCS: 36415-UA; 71010-TC; 80048-TC; 80053-TC; 80320-TC; 81001-TC; 82140-TC; 82607-90; 82746-90; 83735-TC; 83880-TC; 84443-TC; 84484-TC; 85007-TC; 85025-TC; 85027-TC; 90779; 93005; 94640; 94760; J1956; J2060; J3411; J3475; J7030; J7613; X6226; X6598; Z7610